=== PATIENT | male | born 1960 | race Caucasian/White ===

== ENCOUNTER → 2017-11-14 | Outpatient (CLI) | payer OTHER | LOC: M SLEEP 20:00 | DX: G47.33 Obstructive sleep apnea (adult) (pediatric) (principal) | CPT/HCPCS: 95811 ==

== ENCOUNTER → 2018-02-01 | Outpatient (CLI) | payer OTHER ==
[2018-02-01 18:23] LABS: ESTIMATED AVERAGE GLUCOSE 117 MG/DL (60-110); HEMOGLOBIN A1c 5.7 %
== END ==
LOC: M SMT 15:28
DX: E11.65 Type 2 diabetes mellitus with hyperglycemia (principal)
CPT/HCPCS: 83036

== ENCOUNTER 2018-04-13 07:40 | Day surgery (SDC) | payer OTHER ==
[2018-04-13] MEDS: NS 1,000 ML IV (06:00)
[~2018-04-13 07:40] MED LIST: LIDOCAINE 2% INJ 100 MG/5 ML SDV (FOR ANES.) As Ordered; PROPOFOL 200 MG/20 ML VIAL As Ordered
[2018-04-13] MEDS ORDERED: PROPOFOL 200 MG/20 ML VIAL As Ordered (09:21)
== END 2018-04-13 10:30 | disposition home or self-care (01) ==
LOC: M OPP 07:40
DX: D50.9 Iron deficiency anemia, unspecified (principal); Z86.010 Personal history of colon polyps; D12.3 Benign neoplasm of transverse colon; K57.30 Diverticulosis of large intestine without perforation or abscess without bleeding; K31.7 Polyp of stomach and duodenum; I48.91 Unspecified atrial fibrillation; I10 Essential (primary) hypertension; E78.5 Hyperlipidemia, unspecified; E10.9 Type 1 diabetes mellitus without complications; K21.9 Gastro-esophageal reflux disease without esophagitis; R12 Heartburn; M19.90 Unspecified osteoarthritis, unspecified site; F41.9 Anxiety disorder, unspecified; J45.909 Unspecified asthma, uncomplicated; G47.30 Sleep apnea, unspecified; Z79.01 Long term (current) use of anticoagulants; Z79.899 Other long term (current) drug therapy
CPT/HCPCS: 45380

== ENCOUNTER → 2018-07-07 | Outpatient (CLI) | payer BC ==
[2018-07-07 13:32] LABS: ALBUMIN 3.9 GM/DL (3.2-5.2); ALBUMIN/GLOBULIN RATIO 1.34 (1.00-1.93); ALKALINE PHOSPHATASE 78 U/L (45-117); ALT/SGPT 21 U/L (12-78); ANION GAP 6 MEQ/L (8-16); AST/SGOT 15 U/L (7-37); BILIRUBIN,TOTAL 0.3 MG/DL (0.2-1.0); BLOOD UREA NITROGEN 14 MG/DL (7-18); CALCIUM LEVEL 8.5 MG/DL (8.5-10.1); CARBON DIOXIDE LEVEL 30 MEQ/L (21-32); CHLORIDE LEVEL 106 MEQ/L (98-107); CREATININE FOR GFR 0.77 MG/DL (0.70-1.30); GLOMERULAR FILTRATION RATE > 60.0 (>56); GLUCOSE, FASTING 92 MG/DL (70-100); POTASSIUM SERUM 4.8 MEQ/L (3.5-5.1); SODIUM LEVEL 142 MEQ/L (136-145); TOTAL PROTEIN 6.8 GM/DL (6.4-8.2)
[2018-07-07 13:44] LABS: ESTIMATED AVERAGE GLUCOSE 111 MG/DL (60-110); HEMOGLOBIN A1c 5.5 %
== END ==
LOC: M SMT 09:06
DX: E11.65 Type 2 diabetes mellitus with hyperglycemia (principal)
CPT/HCPCS: 80053

== ENCOUNTER → 2018-07-12 | Outpatient (CLI) | payer BC | LOC: M RAD 11:22 | DX: J20.9 Acute bronchitis, unspecified (principal) | CPT/HCPCS: 71046 ==

== ENCOUNTER → 2018-08-30 | Outpatient (REF) | payer BC ==
[~2018-08-30] MED LIST changes: +AMLO10TA5 PO; +ATOR40TA75 PO; +CARV25TA PO; +CHLO125TA PO; +DIGO0.12 PO; +DIGO0.25 PO; +DOXY50CA4 PO; +ELIQ5TAB PO; +ESCI10TA2 PO; -LIDOCAINE 2% INJ 100 MG/5 ML SDV (FOR ANES.) As Ordered; +LISI40TA PO; +METF500T4 PO; +OZEM2INJ SUBQ; +PRIM250T8 PO; +PRIM50TA6 PO; -PROPOFOL 200 MG/20 ML VIAL As Ordered; +SPIR-10 PO; +TURM500C PO; +VITA2000 PO
[2018-08-30 13:38] LABS: URINE TOTAL PROTEIN 53.9 MG/DL (0-12)
[2018-08-30 15:38] LABS: TOTAL PROTEIN 24 HOUR URINE 471.6 MG/24HR (50-150)
== END ==
LOC: M LAB REF 12:37
PROVIDERS: ATTEND Physician Assistant
DX: E11.65 Type 2 diabetes mellitus with hyperglycemia (principal)

== ENCOUNTER → 2018-12-06 | Outpatient (CLI) | payer BC ==
[2018-12-06 12:08] LABS: BLOOD UREA NITROGEN 11 MG/DL (7-18); CARBON DIOXIDE LEVEL 29 MEQ/L (21-32); CHLORIDE LEVEL 109 MEQ/L (98-107); CREATININE FOR GFR 0.88 MG/DL (0.70-1.30); GLOMERULAR FILTRATION RATE > 60.0 (>56); GLUCOSE, FASTING 128 MG/DL (70-100); POTASSIUM SERUM 4.5 MEQ/L (3.5-5.1); SODIUM LEVEL 143 MEQ/L (136-145)
== END ==
LOC: M LAB 10:33
DX: I48.91 Unspecified atrial fibrillation (principal)

== ENCOUNTER → 2018-12-20 | Outpatient (CLI) | payer BC ==
[2018-12-20 07:59] LABS: BLOOD UREA NITROGEN 12 MG/DL (7-18); CALCIUM LEVEL 8.2 MG/DL (8.5-10.1); CARBON DIOXIDE LEVEL 29 MEQ/L (21-32); CHLORIDE LEVEL 109 MEQ/L (98-107); GLOMERULAR FILTRATION RATE > 60.0 (>56); GLUCOSE, FASTING 155 MG/DL (70-100); POTASSIUM SERUM 4.1 MEQ/L (3.5-5.1); SODIUM LEVEL 142 MEQ/L (136-145)
== END ==
LOC: M LAB 07:13
PROVIDERS: ATTEND Internal Medicine Cardiovascular Disease
DX: I48.91 Unspecified atrial fibrillation (principal)

== ENCOUNTER → 2019-07-01 | Outpatient (CLI) | payer OTHER ==
[~2019-07-01] MED LIST changes: +METF-791 PO; -METF500T4 PO
--- NOTE | 2019-07-01 13:11 | REP ---
Orbit series: Six views. History: Left orbital trauma. Findings: Bony orbital margins are intact. Frontal and maxillary sinus margins are intact. Paranasal sinuses are well-aerated. Nasal bone and inferior maxillary spine appear intact. No mandibular fracture is seen. Impression: No fracture seen. Electronically Signed by Robert Meyer MD 07/01/2019 01:01 P
== END ==
LOC: M LRY 12:19
PROVIDERS: ATTEND Physician Assistant
DX: S05.92XA Unspecified injury of left eye and orbit, initial encounter (principal); X58.XXXA Exposure to other specified factors, initial encounter

== ENCOUNTER → 2020-06-06 | Outpatient (CLI) | payer OTHER ==
[~2020-06-06] MED LIST changes: -AMLO10TA5 PO; +AMLO1TAB25 PO; -DIGO0.12 PO; +DIGO0.123 PO; -DIGO0.25 PO; +DIGO0.253 PO; +ESCI10TA16 PO; -ESCI10TA2 PO; -METF-791 PO; +METF-838 PO
--- NOTE | 2020-06-06 13:51 | REPPI ---
INDICATION: M25.50 PAIN IN JOINT COMPARISON: None. TECHNIQUE: AP, lateral, bilateral oblique and sunrise views. FINDINGS: Lateral view best demonstrates a cluster of rounded chronic calcifications measuring up to approximately 8 mm in the suprapatellar region. Findings suggest synovial osteochondromatosis. Mild arthritic tricompartmental degenerative changes include subtle increased sclerosis along the tibial plateau and posterior patellar margin with minimal joint space narrowing. No significant osteophytosis. Small amount of chondrocalcinosis in the tibiofemoral joint space is also suggested. No acute fracture or dislocation. IMPRESSION: Arthritic degenerative changes as noted above including cluster of rounded chronic calcifications in the suprapatellar pouch. <Electronically signed by Derrick Rousseau > 06/06/20 [id number]
== END ==
LOC: M PLAIMG 11:35
PROVIDERS: ATTEND Physician Assistant
DX: M25.562 Pain in left knee (principal)

== ENCOUNTER → 2020-12-14 | Outpatient (CLI) | payer OTHER ==
[~2020-12-14] MED LIST changes: -LISI40TA PO; +LISI40TA4 PO
--- NOTE | 2020-12-19 10:22 | SLEEPCENT ---
NOCTURNAL POLYSOMNOGRAPHY CPAP TITRATION DATE: 12/14/2020 ORDERED BY: Cata Liang NP Nocturnal polysomnography was performed for retitration of pressure therapy in this patient with obstructive sleep apnea syndrome. For testing a [employer] View full face mask of medium size was used, 10 cm of water pressure were initially applied to the circuit, and the lights were extinguished. 7 hours and 45 minutes of data were reviewed. There were 432 minutes of sleep identified. Sleep latency was normal at 12.5 minutes. REM latency was delayed at 170 minutes. Sleep architecture improved on optimal pressure therapy and there were three to four REM cycles noted. Overall sleep efficiency was 94.6%. The electrocardiogram showed a sinus rhythm with an average heart rate of 62 beats per minute. EEG showed normal waveforms for wake and sleep. Respiratory events were well palliated with CPAP at a pressure of 13 and remaining measures of sleep physiology were normal. IMPRESSION: Obstructive sleep apnea syndrome (G47.33). RECOMMENDATION: Nightly use of pressure therapy 13 cm of water.
== END ==
LOC: M SLEEP 20:00
PROVIDERS: ATTEND Nurse Practitioner Adult Health
DX: G47.33 Obstructive sleep apnea (adult) (pediatric) (principal)

== ENCOUNTER → 2021-02-08 | Outpatient (CLI) | payer OTHER ==
[~2021-02-08] MED LIST changes: -DOXY50CA4 PO; +DOXY50CA7 PO
== END ==
LOC: M LABSMTC 14:36
PROVIDERS: ATTEND Surgery
DX: Z20.828 Contact with and (suspected) exposure to other viral communicable diseases (principal); Z11.59 Encounter for screening for other viral diseases

== ENCOUNTER → 2021-10-30 | Outpatient (CLI) | payer OTHER | LOC: M LABSMTC 09:22 | PROVIDERS: ATTEND Surgery | DX: Z20.822 Contact with and (suspected) exposure to COVID-19 (principal) ==

== ENCOUNTER → 2022-01-10 | Outpatient (CLI) | payer OTHER | LOC: M LAB 16:45 | PROVIDERS: ATTEND Nurse Practitioner Adult Health | DX: M25.512 Pain in left shoulder (principal) ==

== ENCOUNTER → 2022-06-03 | Outpatient (CLI) | payer OTHER | LOC: M PLAIMG 11:07 | PROVIDERS: ATTEND Family Medicine | DX: M54.59 Other low back pain (principal) ==

== ENCOUNTER → 2023-01-21 | Outpatient (CLI) | payer OTHER ==
[2023-01-21 12:10] LABS: BASO % 0.5 % (0.0-1.0); EOS # 0.2 10^3/uL (0.0-0.5); EOS % 5.3 % (0.0-3.0); HEMATOCRIT 41.4 % (42.0-52.0); HEMOGLOBIN 13.5 g/dl (13.5-17.5); LYMPH # 0.9 10^3/uL (1.5-5.0); LYMPH % 21.3 % (24.0-44.0); MEAN CORPUSCULAR HGB CONC 32.6 g/dl (32.0-36.5); MONO # 0.2 10^3/uL (0.0-0.8); MONO % 5.5 % (2.0-8.0); NEUTROPHILS # 2.7 10^3/uL (1.5-8.5); NEUTROPHILS % 67.1 % (36.0-66.0); PLATELET COUNT, AUTOMATED 144 10^3/uL (150-450)
[2023-01-21 12:36] LABS: HEMOGLOBIN A1c 5.1 % (4.0-6.0)
[2023-01-21 12:37] LABS: FREE T4 0.87 NG/DL (0.89-1.76); THYROID STIMULATING HORMONE 1.845 uIU/ML (0.55-4.78)
[2023-01-21 12:40] LABS: ALBUMIN 4.2 G/DL (3.2-5.2); ALKALINE PHOSPHATASE 75 U/L (46-116); ALT/SGPT 22 U/L (7.0-40); AST/SGOT 22 U/L (<34); BILIRUBIN,TOTAL 0.3 MG/DL (0.3-1.2); BLOOD UREA NITROGEN 20 MG/DL (9-23); CALCIUM LEVEL 8.8 MG/DL (8.3-10.6); CARBON DIOXIDE LEVEL 30 MMOL/L (20-31); CHLORIDE LEVEL 108 MMOL/L (98-107); CREATININE FOR GFR 0.95 MG/DL (0.70-1.30); GLOMERULAR FILTRATION RATE > 60.0 (>49); GLUCOSE, FASTING 87 MG/DL (74-106); POTASSIUM SERUM 4.8 MMOL/L (3.5-5.1); SODIUM LEVEL 143 MMOL/L (136-145); TOTAL PROTEIN 6.7 G/DL (5.7-8.2)
== END ==
LOC: M LAB 11:41
PROVIDERS: ATTEND Nurse Practitioner Adult Health
DX: E11.65 Type 2 diabetes mellitus with hyperglycemia (principal)

== ENCOUNTER → 2023-07-29 | Outpatient (REF) | payer OTHER | LOC: M LAB REF 16:59 → EEVIPCON 16:59 | PROVIDERS: ATTEND Family Medicine | DX: H10.023 Other mucopurulent conjunctivitis, bilateral (principal) ==

== ENCOUNTER → 2023-11-28 | Outpatient (CLI) | payer OTHER | LOC: M RAD 09:00 | PROVIDERS: ATTEND Nurse Practitioner Adult Health | DX: M75.101 Unspecified rotator cuff tear or rupture of right shoulder, not specified as traumatic (principal); M75.31 Calcific tendinitis of right shoulder ==